=== PATIENT | female | born 1965 | race American Indian/Alaskan Native ===

== ENCOUNTER 2016-05-03 17:21 | Emergency (ER) | payer SELFPAY ==
[2016-05-03 17:49] VITALS: BP 155/95
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
== END 2016-05-03 18:00 | disposition left against medical advice (07) ==
LOC: ED 17:21
DX: R10.2 Pelvic and perineal pain (principal); Z53.21 Procedure and treatment not carried out due to patient leaving prior to being seen by health care provider